=== PATIENT | female | born 1975 | race African-American/Black ===

== ENCOUNTER → 2019-08-20 12:59 | Outpatient (REF) | payer OTHER, SELFPAY | LOC: ANHLAB 12:59 | PROVIDERS: PCP Family Medicine Sports Medicine; Visit Provider Nurse Practitioner | DX: D23.72 Other benign neoplasm of skin of left lower limb, including hip (principal); D23.71 Other benign neoplasm of skin of right lower limb, including hip | CPT/HCPCS: 88305; 88342 ==